=== PATIENT | female | born 1995 | race Caucasian/White ===

== ENCOUNTER 2019-06-05 07:11 | Emergency (ER) | payer OTHER ==
[2019-06-05 07:20] VITALS: BP 138/71
--- NOTE | 2019-06-05 07:52 | ED Physician Documentation ---
PD HPI URI - Stated complaint Stated Complaint: COUGH/FEVER - Chief complaint Chief Complaint: Resp - History obtained from History obtained from: Patient - History of Present Illness Timing - onset: Yesterday Timing duration: Days (05/22) Timing details: Abrupt onset, Still present Associated symptoms: Fever, Nasal congestion, Dry cough, NVD (nausea without diarrhea nor vomiting). No: Chest pain, Dyspnea, Bilateral edema Contributing factors: No: Sick contact, Travel, Immunocompromised Similar symptoms before: Has not had sx before Recently seen: Not recently seen Review of Systems Constitutional: reports: Fever, Chills, Myalgias Nose: reports: Congestion Throat: denies: Sore throat Respiratory: reports: Cough GI: reports: Nausea. denies: Vomiting, Diarrhea : reports: Now EGA (20 weeks). denies: Dysuria, Frequency PD PAST MEDICAL HISTORY - Past Medical History Past Medical History: No - Past Surgical History Past Surgical History: Yes General: Cholecystectomy - Present Medications Home Medications: Ambulatory Orders Medication Instructions Recorded Confirmed Albuterol Sulfate [Albuterol 2 puffs IH QID #1 hfa.aer.ad 06/05/19 Sulfate Hfa] Benzonatate [Tessalon Perle] 100 mg PO TID PRN #25 capsule 06/05/19 Ondansetron Odt [Zofran] 4 mg TL Q6H PRN #10 tablet 06/05/19 Oseltamivir [Tamiflu] 75 mg PO BID #10 capsule 06/05/19 dexAMETHasone [Decadron] 4 mg PO DAILY #5 tablet 06/05/19 - Allergies Allergies/Adverse Reactions: Allergies Allergy/AdvReac Type Severity Reaction Status Date / Time No Known Drug Allergies Allergy Verified 06/05/19 07:20 - Social History Does the pt smoke?: No Smoking Status: Never smoker Does the pt drink ETOH?: No Does the pt have substance abuse?: No PD ED PE NORMAL - Vitals Vital signs reviewed: Yes - General General: Alert and oriented X 3, No acute distress, Well developed/nourished - HEENT HEENT: Ears normal, Moist mucous membranes, Pharynx benign - Neck Neck: Supple, no meningeal sign, Other (mild anterior adenopathy) - Cardiac Cardiac: RRR, No murmur - Respiratory Respiratory: Clear bilaterally - Abdomen Abdomen: Normal bowel sounds, Soft, Non distended, No organomegaly, Other (gravid with fundus at umbilicus) - Derm Derm: Normal color, Warm and dry - Neuro Neuro: Alert and oriented X 3, No motor deficit, Normal speech Results - Vitals Vitals: Oxygen O2 Source Room air - Labs Labs: Laboratory Tests 06/05/19 08:17 Influenza A (Rapid) Negative Influenza B (Rapid) POSITIVE H PD MEDICAL DECISION MAKING - ED course Complexity details: considered differential, d/w patient Departure - Departure Disposition: 01 Home, Self Care Clinical Impression: Influenza B Condition: Stable Record reviewed to determine appropriate education?: Yes Instructions: ED Flu Follow-Up: KAMRON BELL [Primary Care Provider] - Prescriptions: Albuterol Sulfate [Albuterol Sulfate Hfa] 2 puffs IH QID #1 hfa.aer.ad Benzonatate [Tessalon Perle] 100 mg PO TID PRN #25 capsule PRN Reason: Cough dexAMETHasone [Decadron] 4 mg PO DAILY #5 tablet Ondansetron Odt [Zofran] 4 mg TL Q6H PRN #10 tablet PRN Reason: Nausea / Vomiting Oseltamivir [Tamiflu] 75 mg PO BID #10 capsule Comments: Your test is positive for influenza B. You likely be sick for about 7 or 8 days so the first 4 or 5 are typically the most. We can add oseltamivir or antiviral and see if it will decrease his symptoms and it will decrease the viral load so not quite as much illness. Otherwise symptom medications with albuterol inhaler 2 puffs 4 times a day as well as Decadron steroid daily to decrease the inflammation of the bronchials and less coughing. Stay well-hydrated. Use Tylenol if needed for fevers and pains. Tessalon if needed for cough. Ondansetron if needed for nausea or vomiting. Forms: Activity restrictions Discharge Date/Time: 06/05/19 09:08
[2019-06-05] MEDS ORDERED: DEXAMETHASONE 10 MG/ML VIAL PO STA (08:30)
[2019-06-05] MEDS ORDERED: CHERRY SYRUP 10 ML UDC PO ONE (08:30)
[2019-06-05] MEDS ORDERED: BENZONATATE 100 MG CAPSULE PO STA (08:30)
[2019-06-05] MEDS ORDERED: ACETAMINOPHEN 325 MG TABLET PO STA (08:30)
[2019-06-05] MEDS ORDERED: OSELTAMIVIR 75 MG CAPSULE PO STA (08:41)
== END 2019-06-05 09:08 | disposition home or self-care (01) ==
LOC: ED 07:11
DX: J10.1 Influenza due to other identified influenza virus with other respiratory manifestations (principal)
CPT/HCPCS: 87275; 87276; 99284; A9270

== ENCOUNTER 2019-09-22 08:00 | Outpatient (CLI) | payer OTHER ==
[2019-09-22 21:59] LABS: TRICHOMONAS VAGINALIS DNA NEGATIVE (NEGATIVE)
== END 2019-09-22 23:59 | disposition home or self-care (01) ==
LOC: LAB.R 08:00
PROVIDERS: ATTEND Advanced Practice Midwife
DX: Z34.90 Encounter for supervision of normal pregnancy, unspecified, unspecified trimester (principal)
CPT/HCPCS: 87491; 87591; 87661; 87797

== ENCOUNTER 2021-10-08 19:19 | Emergency (ER) | payer OTHER ==
[2021-10-08 19:26] VITALS: BP 133/73
--- OUTSIDE RECORDS SUMMARY | 2021-10-08 20:14 | EXTERNAL MEDICAL SUMMARY RPT | Continuity of Care Document ---
:1995 Author Organization [facility] Address [address] [place] [address] Phone Care Team Providers Name Role Phone Miscellaneous, Doctor Unavailable Unavailable Noti, Mabel Unavailable Unavailable Allergies No information. Encounters No information. Medications No information. Problems date description facility [id number] Encounter for supervision of other [place] , [facility] second [id number] 16 weeks gestation of [facility] [id number] Encounter for supervision of other norm [facility] first t Procedures date description facility [id number] [facility] [id number] [facility] [id number] [facility] [id number] [facility] [id number] [facility] [id number] [facility] [id number] [facility] Results No information. Vital Signs date measurement value source [id number] weight_standard 235.06 lb [id number] weight_metric 106.62 kg [id number] height_standard 68 in [id number] height_metric 172.72 cm [id number] BP_systolic 120 mm[Hg] [id number] BP_diastolic 80 mm[Hg] [id number] BMI 35.7 kg/m2 [id number] weight_standard 107.05 lb [id number] weight_metric 48.56 kg [id number] height_standard 68 in [id number] height_metric 172.72 cm [id number] BP_systolic 122 mm[Hg] [id number] BP_diastolic 66 mm[Hg] [id number] BMI 35.9 kg/m2
--- NOTE | 2021-10-08 20:38 | ED Physician Documentation ---
PD HPI UPPER EXT INJURY - Stated complaint Stated Complaint: R RING FINGER LAC - Chief complaint Chief Complaint: Laceration - History obtained from History obtained from: Patient - History of Present Illness Location: Right, Finger (ring) Where injury occurred: Home Pain level max: 3 Pain level now: 2 Improved by: Rest Worsened by: Moving, Palpating Contributing factors: No: Anticoagulated Recently seen: Not recently seen - Additonal information Additional information: 26-year-old female presents to the emergency department with a right ring finger laceration. She was using a mandolin at home when she excellently sliced her finger. Worse with palpation and movement. Not anticoagulated. Patient is right-handed. Tetanus up-to-date. Review of Systems GI: denies: Nausea, Vomiting : denies: Now EGA PD PAST MEDICAL HISTORY - Past Medical History Past Medical History: No Cardiovascular: None Respiratory: None Neuro: None Endocrine/Autoimmune: None GI: None : None Musculoskeletal: None Derm: None - Past Surgical History Past Surgical History: Yes General: Cholecystectomy HEENT: Other - Present Medications Home Medications: Ambulatory Orders Medication Instructions Recorded Confirmed Pnv No.95/Ferrous Fum/Folic AC 1 cap PO DAILY 10/08/21 10/08/21 [ Caplet] - Allergies Allergies/Adverse Reactions: Allergies Allergy/AdvReac Type Severity Reaction Status Date / Time No Known Drug Allergies Allergy Verified 06/05/19 07:20 - Social History Does the pt smoke?: No Smoking Status: Never smoker Does the pt drink ETOH?: No Does the pt have substance abuse?: No - Immunizations Immunizations are current?: Yes - POLST Patient has POLST: No PD ED PE NORMAL - Vitals Vital signs reviewed: Yes - General General: Alert and oriented X 3, No acute distress - HEENT HEENT: Moist mucous membranes - Derm Derm: Warm and dry - Extremities Extremities: Other (R ring finger - tip amputation. no bony exposure. Neurovascular intact. ) - Neuro Neuro: Alert and oriented X 3 Results - Vitals Vitals: Vital Signs - 24 hr 10/08/21 19:24 Temperature 37.0 C Heart Rate 74 Respiratory 19 Rate Blood Pressure 133/73 H O2 Saturation 99 Oxygen O2 Source Room air PD MEDICAL DECISION MAKING - ED course Complexity details: considered differential, d/w patient ED course: Patient with a small fingertip amputation, no bony exposure. A finger tourniquet was applied and Dermabond was applied. When the glue dried the tourniquet was removed. No further bleeding. A foam finger splint was then applied over the area. Patient tolerated well. Patient counseled regarding signs and symptoms for which I believe and urgent re-evaluation would be necessary. Patient with good understanding of and agreement to plan and is comfortable going home at this time This document was made in part using voice recognition software. While efforts are made to proofread this document, sound alike and grammatical errors may oc cur. Departure - Departure Disposition: 01 Home, Self Care Clinical Impression: Traumatic amputation of fingertip Qualifiers: Encounter type: initial encounter Qualified Code(s): S68.119A - Complete traumatic metacarpophalangeal amputation of unspecified finger, initial encounter Condition: Good Instructions: ED Laceration Amputation Finger Tip Open Tx Follow-Up: Your,doctor As needed [Other] Comments: Keep the area clean. Do not apply any ointment as this may dissolve the glue. Wear the splint for the next 3 to 4 days to prevent any more damage to the area. Return if you notice redness, swelling or drainage from the wound. The glue should dissolve on its own within a few days. Return if you worsen Discharge Date/Time: 10/08/21 20:35
== END 2021-10-08 20:35 | disposition home or self-care (01) ==
LOC: ED 19:19
DX: S68.110A Complete traumatic metacarpophalangeal amputation of right index finger, initial encounter (principal); W27.4XXA Contact with kitchen utensil, initial encounter; Y93.G1 Activity, food preparation and clean up; Y92.009 Unspecified place in unspecified non-institutional (private) residence as the place of occurrence of the external cause
CPT/HCPCS: 99282; 99283

== ENCOUNTER 2021-12-16 07:53 | Outpatient (CLI) | payer OTHER ==
[2021-12-16 09:09] LABS: HGB - HEMOGLOBIN 11.5 g/dL (12.0-16.0); MEAN CORPUSCULAR HEMOGLOBIN 30.3 pg (27.0-31.0); MEAN CORPUSCULAR HGB CONC 32.9 g/dL (32.0-36.0); MEAN CORPUSCULAR VOLUME 92.3 fL (81.0-99.0); RED BLOOD COUNT 3.79 10^6/uL (4.20-5.40); RED CELL DISTRIBUTION WIDTH 13.2 % (12.0-15.0); WHITE BLOOD COUNT 7.1 x10^3/uL (4.8-10.8)
== END 2021-12-16 07:54 | disposition home or self-care (01) ==
LOC: LAB 07:53
PROVIDERS: ATTEND Obstetrics & Gynecology
DX: Z34.80 Encounter for supervision of other normal pregnancy, unspecified trimester (principal)
CPT/HCPCS: 36415; 82950; 85027

== ENCOUNTER 2022-01-12 16:52 | Outpatient (CLI) | payer OTHER ==
--- NOTE | 2022-01-13 11:02 | Ultrasound Report ---
PROCEDURE: OB F/U or Repeat INDICATIONS: UTERINE SIZE DATE DISCREPANCY OUTSIDE/PRIOR DATING DATA: Last menstrual period (LMP): 05/31/2021. LMP-based estimated date of delivery (JANELLE): 03/07/2022. First dating scan (date and location): 09/20/2021. Estimated date of delivery (JANELLE) from first dating scan: 03/09/2022. The below data below was generated using the ultrasound JANELLE of 03/09/2022 TECHNIQUE: Real-time scanning was performed of the fetus, with image documentation and biometric measurements. COMPARISON: OB ultrasound 10/18/2021 [facility] FINDINGS: General: A single living intrauterine gestation is present. Presentation: Breech Placenta: Placental position is anterior, without previa. Amniotic fluid index: 16.3 cm, within normal limits for gestational age. Largest pocket 5.8 cm heart rate: 148 beats per minute. Maternal cervical canal: 4.3 cm long; normal length is 2.5 cm or more. biometrics: Biparietal diameter: 8.0 cm 32 weeks 0 days Head circumference: 30.1 cm 34 weeks 0 days Abdominal circumference: 20.4 cm 32 weeks 3 days Femur length: 6.4 cm 33 weeks 1 day Estimated gestational age from initial scan: 32 weeks 0 days Composite gestational age from present scan: 32 weeks 5 days Estimated weight and percentile: 2049 g, 65th percentile Measurement variability in biometric dating: +/- 10 days from 12-20 weeks gestation, +/- 2 weeks from 20-30 weeks gestation, +/- 3 weeks at 30 weeks gestation or more. Other: Nuchal cord is noted. IMPRESSION: Single live intrauterine with ultrasound gestational age of 30 weeks 5 days. CHRYSTAL is within normal limits. Nuchal cord is noted. Interval follow-up is recommended. Reviewed by: Phyllis Paige MD on 01/13/2022 11:00 AM PDT Approved by: Phyllis Paige MD on 01/13/2022 11:00 AM PDT Station ID: [id number]
== END 2022-01-12 16:53 | disposition home or self-care (01) ==
LOC: DI 16:52
PROVIDERS: ATTEND Obstetrics & Gynecology
DX: O26.843 Uterine size-date discrepancy, third trimester (principal); Z3A.30 30 weeks gestation of pregnancy

== ENCOUNTER 2022-02-13 16:00 | Outpatient (CLI) | payer OTHER | END 2022-02-13 23:59 | disposition home or self-care (01) | LOC: LAB.WC 16:00 | PROVIDERS: ATTEND Obstetrics & Gynecology | DX: Z36.85 Encounter for antenatal screening for Streptococcus B (principal) | CPT/HCPCS: 87797 ==

== ENCOUNTER 2022-02-20 16:39 | Outpatient (CLI) | payer OTHER ==
--- NOTE | 2022-02-21 16:35 | Ultrasound Report ---
PROCEDURE: OB F/U or Repeat INDICATIONS: UTERINE SIZE DATE DISCREPENCY OUTSIDE/PRIOR DATING DATA: Last menstrual period (LMP): 05/31/2021. LMP-based estimated date of delivery (JANELLE): 03/07/2022. First dating scan (date and location): 10/18/2021, [facility]. Estimated date of delivery (JANELLE) from first dating scan: 03/09/2022. TECHNIQUE: Real-time scanning was performed of the fetus, with image documentation and biometric measurements. FINDINGS: General: A single living intrauterine gestation is present. Presentation: Breech Placenta: Placental position is anterior, without previa. Amniotic fluid index: 16.3 cm, 62.5% for gestational age. heart rate: 148 beats per minute. Maternal cervical canal: 4.3 cm long; normal length is 2.5 cm or more. biometrics: Biparietal diameter: 8.8 cm, 35 weeks, 4 days Head circumference: 33.4 cm, 38 weeks, 2 days Abdominal circumference: 33.6 cm, 37 weeks, 3 days Femur length: 7.1 cm, 36 weeks, 3 days Estimated gestational age from initial scan: 37 weeks, 4 days Composite gestational age from present scan: 37 weeks, 0 days Estimated weight and percentile: 3167 g, 45.9% Measurement variability in biometric dating: +/- 10 days from 12-20 weeks gestation, +/- 2 weeks from 20-30 weeks gestation, +/- 3 weeks at 30 weeks gestation or more. Other: Nuchal cord is redemonstrated. IMPRESSION: 1. Single live intrauterine gestation with a composite gestational age of 37 weeks, 0 days which is c oncordant with dates by initial scan. 2. Nuchal cord again noted as well as breech position. Reviewed by: Celine Caputo MD on 02/21/2022 4:34 PM PDT Approved by: Celine Caputo MD on 02/21/2022 4:34 PM PDT Station ID: [id number]
== END 2022-02-20 16:40 | disposition home or self-care (01) ==
LOC: DI 16:39
PROVIDERS: ATTEND Nurse Practitioner
DX: O26.843 Uterine size-date discrepancy, third trimester (principal); Z3A.37 37 weeks gestation of pregnancy

== ENCOUNTER 2022-03-06 07:29 | Inpatient (IN) | payer OTHER ==
--- NOTE | 2022-03-06 09:15 | HISTORY & PHYSICAL EXAMINATION ---
Admit History - Visit Reason Visit Reason: Other (for elective induction) - : 2 Parity: 1 Premature: 0 Ectopic: 0 : 0 Care: positive: [facility] Risk/History: positive: Other (Shoulder dystocia) Complications This : positive: None Smoking Status: Never smoker - Mother's Labs Mother's Blood Type: positive: O Mother's RH: positive: Positive GBS: positive: Group B Step Negative Rubella Status: positive: Non-immune - Other Maternal History Other Maternal History: History of abnormal Pap smear low-grade squamous intraepithelial lesion History of cholecystectomy and extraction of wisdom tooth Meds/Allgy - Home Medications Home Medications: Ambulatory Orders Medication Instructions Recorded Confirmed Pnv No.95/Ferrous Fum/Folic AC 1 cap PO DAILY 10/08/21 10/08/21 [ Caplet] - Allergies Allergies/Adverse Reactions: Allergies Allergy/AdvReac Type Severity Reaction Status Date / Time No Known Drug Allergies Allergy Verified 06/05/19 07:20 Review of Systems - All Other Systems All Other Systems: reports: Reviewed and negative Physical - Abdominal Exam Vital Signs: Temp Pulse Resp BP Pulse Ox O2 Flow Rate 97.9 F 90 16 136/73 H 03/06/22 08:00 03/06/22 08:00 03/06/22 08:00 03/06/22 08:00 Contraction Intensity: positive: Irritability Uterine Resting Tone: positive: Soft - Monitoring Strip Review: positive: Category I - Presentation Presentation: positive: Vertex - Vaginal Exam Membranes: positive: Membranes intact Dilation (in cm): 2 Station: positive: -1 Cervical Position: positive: Posterior - Speculum Exam Speculum Exam Performed: positive: Yes - Other Notes Labor Progress Note/Additional Text: Elective induction with the help of balloon insertion Plan for Labor - Plan For Labor Plan for Labor: Balloon insertion followed by Pitocin and rupture of membrane Physical Exam - Physical Exam General: positive: No acute distress HEENT: positive: Atraumatic Neck: positive: Supple w/out meningeal sx Cardiac: positive: Regular Rate Resipratory: positive: Clear to ausultation jenni Abdomen: positive: Normal Bowel sounds, Distended Female : positive: Normal external Back: positive: Normal ROM Extremities: positive: Normal ROM Skin: positive: Warm and dry Neurologic: positive: Alert and Oriented X 3
[2022-03-06] MEDS ORDERED: TERBUTALINE 1 MG/ML VIAL SUBQ PRN (09:33)
[2022-03-06] MEDS ORDERED: hydrALAZINE INJ 20 MG/ML VIAL IVP PRN ×2 (09:33)
[2022-03-06] MEDS ORDERED: ONDANSETRON 4 MG/2 ML VIAL IVP PRN (09:33)
[2022-03-06] MEDS ORDERED: SODIUM CHLORIDE FLUSH 0.9% 10 ML SYRINGE IVP PRN (09:33)
[2022-03-06] MEDS ORDERED: lidocaine 1% 20 ML MDV ID PRN (09:33)
[2022-03-06] MEDS ORDERED: NIFEdipine 10 MG CAPSULE PO PRN (09:33)
[2022-03-06] MEDS ORDERED: CARBOPROST TROMETHAMINE 250 MCG/ML AMP IM PRN (09:33)
[2022-03-06] MEDS ORDERED: fentaNYL 100 MCG/2 ML VIAL IVP PRN (09:33)
[2022-03-06] MEDS ORDERED: OXYTOCIN 10 UNIT/ML VIAL IM PRN (09:33)
[2022-03-06] MEDS ORDERED: OXYTOCIN/SODIUM CHLORIDE 500 ML IV PRN (09:33)
[2022-03-06] MEDS ORDERED: miSOPROStoL 200 MCG TABLET PR PRN (09:33)
[2022-03-06] MEDS ORDERED: miSOPROStoL 200 MCG TABLET BC PRN (09:33)
[2022-03-06] MEDS ORDERED: LABETALOL 20 MG/4 ML SYRINGE IVP PRN ×3 (09:33)
[2022-03-06] MEDS ORDERED: METHYLERGONOVINE 0.2 MG/ML VIAL IM PRN (09:33)
[2022-03-06] MEDS ORDERED: TRANEXAMIC ACID IN NACL 1,000 MG/100 ML BAG IV PRN (09:33)
--- NOTE | 2022-03-06 09:46 | PROVIDER PROGRESS NOTE ---
Progress Note Induction of labor risk, benefits and alternative reviewed. Discussed cervical ripening options and need for this if Rubi score is less than 8. Discussed if Rubi score above 8 then can proceed with induction of labor. Inductions is always performed with Pitocin through the IV and artificial rupture of membranes. Discussed risk and benefit of both. Risk of failed induction and possible need for was reviewed. Procedure: The procedure has been discussed with the patient, including benefits and risk. She also understands the possibility of awaiting spontaneous labor. She consents to a labor induction preceded by balloon cervical ripening. Patient in lithotomy. Consent obtained. Speculum placed, cervix identified. [employer] balloon placed into cervix without difficulty. Uterine balloon filled with a 60 cc sterile water.. Vaginal balloon also filled with 60 cc sterile water, tolerated well. T Cat 1.
[2022-03-06 09:47] LABS: BASOPHILS % (AUTO) 0.3 %; EOSINOPHILS # (AUTO) 0.1 10^3/uL (0.0-0.7); EOSINOPHILS % (AUTO) 1.1 %; HCT - HEMATOCRIT 36.6 % (37.0-47.0); HGB - HEMOGLOBIN 11.5 g/dL (12.0-16.0); LYMPHOCYTES # (AUTO) 2.3 10^3/uL (1.5-3.5); LYMPHOCYTES % (AUTO) 33.1 %; MEAN CORPUSCULAR HEMOGLOBIN 27.8 pg (27.0-31.0); MEAN CORPUSCULAR HGB CONC 31.4 g/dL (32.0-36.0); MEAN CORPUSCULAR VOLUME 88.4 fL (81.0-99.0); MEAN PLATELET VOLUME 10.7 fL (7.9-10.8); MONOCYTES # (AUTO) 0.4 10^3/uL (0.0-1.0); MONOCYTES % (AUTO) 5.7 %; NEUTROPHILS # (AUTO) 4.2 10^3/uL (1.5-6.6); NEUTROPHILS % (AUTO) 59.5 %; PLT - PLATELET COUNT 197 10^3/uL (130-450); RED BLOOD COUNT 4.14 10^6/uL (4.20-5.40); RED CELL DISTRIBUTION WIDTH 13.7 % (12.0-15.0)
[2022-03-06] MEDS ORDERED: LACTATED RINGERS 1,000 ML IV SCH ×2 (10:00→19:00)
--- NOTE | 2022-03-06 10:30 | PROVIDER PROGRESS NOTE ---
Subjective - Prog Note Date Prog Note Date: 03/06/22 Prog Note Time: 10:28 - Subjective Subjective: The balloon came out spontaneously, and the cervix is 3+ centimeter. Artificial rupture membranes revealed clear fluid and Pitocin will be initiated per protocol. Objective - Vital Signs/Intake & Output Vital Signs: Vital Signs x48h Temp Pulse Resp BP 03/06/22 08:00 97.9 F 90 16 136/73 H - Lab Results Fish Bones: 03/06/22 08:30 Other Labs: Lab Results x24hrs 03/06/22 Range/Units 08:30 WBC 7.0 (4.8-10.8) x10^3/uL RBC 4.14 L (4.20-5.40) 10^6/uL Hgb 11.5 L (12.0-16.0) g/dL Hct 36.6 L (37.0-47.0) % MCV 88.4 (81.0-99.0) fL MCH 27.8 (27.0-31.0) pg MCHC 31.4 L (32.0-36.0) g/dL RDW 13.7 (12.0-15.0) % Plt Count 197 (130-450) 10^3/uL MPV 10.7 (7.9-10.8) fL Neut # (Auto) 4.2 (1.5-6.6) 10^3/uL Lymph # (Auto) 2.3 (1.5-3.5) 10^3/uL [place] # (Auto) 0.4 (0.0-1.0) 10^3/uL Eos # (Auto) 0.1 (0.0-0.7) 10^3/uL Baso # (Auto) 0.0 (0.0-0.1) 10^3/uL Absolute Nucleated RBC 0.00 x10^3/uL Nucleated RBC % 0.0 /100WBC
[2022-03-06] MEDS: OXYTOCIN/SODIUM CHLORIDE 500 ML IV SCH ×2 (10:41→19:04)
[2022-03-06] MEDS: SODIUM CHLORIDE FLUSH 0.9% 10 ML SYRINGE IVP SCH ×2 (10:41→20:30)
--- NOTE | 2022-03-06 16:57 | PROVIDER PROGRESS NOTE ---
Progress Note heart tone: Category 1 Contractions: Regular and strong Discussed about pain medication Cervix: 6+/90%/0 Plan: Continue current plan
--- NOTE | 2022-03-06 18:23 | DELIVERY NOTE ---
Delivery Note - Labor Labor: positive: Augmented by ARM, Induced by oxytocin - Delivery Method Infant Delivery Method: positive: Spontaneous vaginal delivery - Cervical Ripening Method Cervical Ripening Method: positive: Balloon device, Oxytocin - Presentation Presentation: positive: Vertex, PRISCILA - left occiput anterior - Nuchal Cord Nuchal Cord: positive: Present (easily slipped over the shoulder) - Anesthetic Anesthetic Type: - Episiotomy Type Episiotomy Type: positive: None - Laceration Laceration: positive: None - Delivery Outcome Delivery Outcome: positive: Livebirth - : positive: Placed in direct skin contact with mother, Bulb syringe, [place] used sex: positive: Male - Cord Cord: positive: 3 vessels - Placenta Placenta: positive: Intact, Spontaneous - Estimated Blood Loss Estimated Blood Loss (in cc): 150 - Post Delivery Events Post Delivery Events: positive: No post delivery events - Delivery Comments (Free Text/Narrative) Delivery Comments (Free Text/Narrative): Patient was placed in the dorsal lithotomy position. Upon maternal pushing the head was delivered atraumatically followed by the anterior shoulder, posterior shoulder, then the remainder of the 's body. A nuchal cord was easily slipped over the shoulder. A male was delivered with APGARS of [ 8 ] at 1 minute and [ 9 ] at 5 minutes. The infant was placed on its mother's chest . After the cord finished pulsating, the umbilical cord was clamped times two and cut. The placenta delivered intact with three vessel cord. Placenta [was not] sent to pathology. Thirty units of Pitocin were added to the IV fluid and allowed to run freely. Uterine massage was performed until uterus was deemed firm. [Upon inspection of the perineum, vagina and cervix were intact. Upon re- inspection the patient was hemostatic.] Uterus again massaged and found to be firm. Needle and sponge counts were correct. Cytotec 800 mcg were inserted rectaly kaley to immidiate hemorrahge and she responded well. Patient was stable and allowed to recover in L&D room. [Infant was stable and remained in room with mother.] weight is pending at this time. EBL: 300 ml.
[2022-03-06] MEDS: IBUPROFEN 600 MG TABLET PO SCH (20:13)
[2022-03-06] MEDS: DOCUSATE SODIUM 100 MG CAPSULE PO SCH (23:58)
[2022-03-07] MEDS: IBUPROFEN 600 MG TABLET PO SCH ×3 (02:25→13:27)
[2022-03-07] MEDS ORDERED: PRENATAL VITAMIN TABLET PO SCH (08:00)
[2022-03-07] MEDS: DOCUSATE SODIUM 100 MG CAPSULE PO SCH (08:24)
[2022-03-07] MEDS: ACETAMINOPHEN 500 MG TABLET PO SCH ×2 (08:34→13:28)
--- NOTE | 2022-03-07 11:00 | PROVIDER PROGRESS NOTE ---
Subjective - Prog Note Date Prog Note Date: 03/07/22 Prog Note Time: 10:58 - Subjective Pt reports feeling: Improved (Doing well.) Objective - Vital Signs/Intake & Output Vital Signs: Vital Signs x48h Temp Pulse Resp BP Pulse Ox 03/07/22 08:10 97.7 F 60 18 122/70 100 03/07/22 06:25 98.1 F 69 18 125/74 100 Intake & Output: Intake & Output 03/04/22 03/05/22 03/06/22 03/07/22 23:59 23:59 23:59 23:59 Intake Total 3075 1200 Balance 3075 1200 - Objective General Appearance: positive: No acute distress Abdomen: positive: Non-tender Neurologic/Psychiatric: positive: Oriented x3 - Lab Results Fish Bones: 03/06/22 08:30 Other Labs: Lab Results x24hrs 03/06/22 03/06/22 Range/Units 10:06 08:30 Blood Type O POSITIVE Blood Type Recheck O POSITIVE Antibody Screen NEGATIVE Assessment/Plan - Problem List (3) (spontaneous vaginal delivery) Impression: P: RTC 1 week for PP check up
--- NOTE | 2022-03-07 11:05 | Discharge Plan ---
Discharge Plan Problem Reviewed?: Yes Disposition: Home, Self Care Diet: Regular Activity Restrictions: Activity as Tolerated Shower Restrictions: No Driving Restrictions: Yes (PP 6 weeks) Weight Bearing: Partial Weight (not heavier than the baby) No Smoking: If you smoke, Please STOP! Call for help. Follow-up with: Akash Guzman MD [Provider Admit Priv/Credential] -
[2022-03-07 11:07] LABS: BASOPHILS % (AUTO) 0.4 %; EOSINOPHILS # (AUTO) 0.1 10^3/uL (0.0-0.7); EOSINOPHILS % (AUTO) 0.8 %; HCT - HEMATOCRIT 38.4 % (37.0-47.0); HGB - HEMOGLOBIN 12.2 g/dL (12.0-16.0); LYMPHOCYTES # (AUTO) 2.6 10^3/uL (1.5-3.5); LYMPHOCYTES % (AUTO) 27.3 %; MEAN CORPUSCULAR HEMOGLOBIN 27.9 pg (27.0-31.0); MEAN CORPUSCULAR HGB CONC 31.8 g/dL (32.0-36.0); MEAN CORPUSCULAR VOLUME 87.7 fL (81.0-99.0); MEAN PLATELET VOLUME 9.9 fL (7.9-10.8); MONOCYTES # (AUTO) 0.7 10^3/uL (0.0-1.0); MONOCYTES % (AUTO) 7.5 %; NEUTROPHILS # (AUTO) 6.1 10^3/uL (1.5-6.6); NEUTROPHILS % (AUTO) 63.7 %; PLT - PLATELET COUNT 196 10^3/uL (130-450); RED BLOOD COUNT 4.38 10^6/uL (4.20-5.40); RED CELL DISTRIBUTION WIDTH 13.8 % (12.0-15.0); WHITE BLOOD COUNT 9.6 x10^3/uL (4.8-10.8)
--- NOTE | 2022-03-07 11:09 | DISCHARGE SUMMARY ---
Discharge Summary Admit Date: 03/06/22 Discharge Date: 03/07/22 Discharging Provider: Primary Care Provider: Code Status: Attempt Resuscitation Condition at Discharge: Stable Discharge Disposition: 01 Home, Self Care - DIAGNOSES Admission Diagnoses: Intrauterine at term History of shoulder dystocia Elective induction Discharge Diagnoses with Status of Each Condition: Normal day 1 - HPI History of Present Illness: This 27-year-old white female 2 para 1 was admitted for elective induction. She had a vaginal delivery with shoulder dystocia problem last time and elective induction was scheduled this time. She did not have routine pr enatal care and course. She responded to Pitocin induction well and she delivered a baby boy over the intact perineum. She stayed stable . - HOSPITAL COURSE Hospital Course: She remained stable and wanted to be discharged day 1. Baby is was stable and baby is going to be checked 24-hour. Checkup. - ALLERGIES Allergies/Adverse Reactions: Allergies Allergy/AdvReac Type Severity Reaction Status Date / Time No Known Drug Allergies Allergy Verified 06/05/19 07:20 - MEDICATIONS Home Medications: Ambulatory Orders Medication Instructions Recorded Confirmed Pnv No.95/Ferrous Fum/Folic AC 1 cap PO DAILY 10/08/21 10/08/21 [ Caplet] - PHYSICAL EXAM AT DISCHARGE General Appearance: positive: No acute distress ENT: positive: ENT inspection nml Neck: positive: Nml inspection Respiratory: positive: No respiratory distress, Breath sounds nml Cardiovascular: positive: Regular rate & rhythm Abdomen: positive: Non-tender Back: positive: Nml inspection Skin: positive: Color nml Extremities: positive: Non-tender Neurologic/Psychiatric: positive: Oriented x3 - LABS Result Diagrams: 03/06/22 08:30 - FOLLOW UP Follow Up: [address] Guzman - TIME SPENT Time Spent in Discharge (Minutes): 10
[2022-03-07] MEDS ORDERED: MEASLES,MUMPS & RUBELLA VACC 0.5 ML VIAL SUBQ ONE (13:00)
[2022-03-07] MEDS ORDERED: VARICELLA VACCINE LIVE/PF 1,350 UNIT/0.5 ML VIAL SUBQ ONE (13:00)
[2022-03-07 15:52] VITALS: BP 109/57
--- NOTE | 2022-03-07 19:37 | Labor Flowsheet ---
Labor Flowsheet Datetime Report Generated by CPN: 03/07/2022 19:36 Datetime: 03/07/2022 15:36 VITAL SIGNS NBP Sys/Leah/Mean (mmHg): 109 : 57 : 68 Pulse: 64 Datetime: 03/06/2022 20:11 Stage of : Recovery Datetime: 03/06/2022 20:10 PAIN Pain Scale: 0 Pain Presence: None/Denies Datetime: 03/06/2022 19:18 Patient Care Comments: attempt Datetime: 03/06/2022 18:57 Respirations: 18 Datetime: 03/06/2022 18:46 Vital Sign Comments: Provider notified of elevated BP, no new orders. Pt denies HUERTA, RUQ pain, visu al changes Datetime: 03/06/2022 18:38 Temperature (C): 37.1 Datetime: 03/06/2022 18:30 Membranes Ruptured Date/Time: 03/06/2022 10:29 Datetime: 03/06/2022 18:22 Communication Comments: continued skin to skin Datetime: 03/06/2022 18:18 COMMUNICATION Communication: Count completed Datetime: 03/06/2022 18:14 Medication Comments: Pit bolus started Datetime: 03/06/2022 18:05 VAGINAL EXAM Dilatation (cm): 10.0 Effacement (%): 100 Station: 2 Exam by: Dr. Remingtonung Datetime: 03/06/2022 18:00 UTERINE ACTIVITY Monitor Mode: External Frequency (min): 2-3 Quality: Moderate Duration (sec): 60-70 Pattern: Normal: <= 5 Contractions in 10 Minutes Resting Tone (Palpate): Relaxed ASSESSMENT A Monitor Mode: External US FHR Baseline Rate : 125 Variability: Moderate 6-25 bpm Accelerations: 15X15 Decelerations: None Category: Category I Datetime: 03/06/2022 17:55 Temperature Route: Axillary LaborFlag: Labor Datetime: 03/06/2022 17:48 Pain Assessment Comments: Pt c/o urge to push Datetime: 03/06/2022 17:22 MEDICATIONS Pitocin (milliunits): Decreased to @ 6 Datetime: 03/06/2022 17:01 Pain Type: Cramping Pain Location: Abdomen Datetime: 03/06/2022 17:00 Pitocin Checklist: At Least 1 Acceleration of 15 bpm x 15 Seconds in 30 Minutes or Adequate Variabi lity; No More than 1 Late Deceleration Occurred in Past 30 Minutes; No More than 2 Variable Decelerat ions > 60 Seconds in Duration and decreasing >60 bpm in 30 minutes; No More than 5 Uterine Contractio ns in 10 Minutes for any 20 Minute Interval Datetime: 03/06/2022 16:49 Vaginal Bleeding: Scant Datetime: 03/06/2022 16:33 Monitor Interventions for UA: [place] Adjusted Datetime: 03/06/2022 16:32 Monitor Interventions for FHR: Ultrasound Adjusted Datetime: 03/06/2022 16:30 Contraction Comments: per RN palpation Datetime: 03/06/2022 16:28 Pain Relief Measures: Comfort Measures Pain Coping: Breathing Through Contractions Datetime: 03/06/2022 16:17 FHR Baseline Changes: No Baseline Change Datetime: 03/06/2022 15:35 Patient Position/Activity: Standing Datetime: 03/06/2022 15:00 PATIENT CARE Oxygen Method: Room Air Datetime: 03/06/2022 14:43 SpO2 (%): 99 Datetime: 03/06/2022 14:02 I/O Interventions: Up to BR Datetime: 03/06/2022 13:56 Comfort Measures: Breathing/Relaxation Datetime: 03/06/2022 13:01 Comments: interrupted strip d/t maternal movement Datetime: 03/06/2022 13:00 Amniotic Fluid Color: Particulate Meconium Amniotic Fluid Amount: Small Membrane Comments: noticed on alan pad possible particulate meconium Datetime: 03/06/2022 10:29 Membrane Status: Ruptured Membranes Rupture Method: Artificial Amniotic Fluid Odor: Normal Vaginal Exam Comments: 3+cm
== END 2022-03-07 19:30 | disposition home or self-care (01) | DRG 807 ==
LOC: WFO 07:29 → FBP 07:30 → WFO 09:30 → FBP 09:33 → OBSVTOIN 10:47
PROVIDERS: ADMIT Obstetrics & Gynecology; ATTEND Obstetrics & Gynecology
PROC: 10E0XZZ Delivery of Products of Conception, External Approach (ICD-10-PCS; principal; 2022-03-06)
DX: O69.81X0 Labor and delivery complicated by cord around neck, without compression, not applicable or unspecified (principal); Z37.0 Single live birth; Z3A.00 Weeks of gestation of pregnancy not specified; Z87.59 Personal history of other complications of pregnancy, childbirth and the puerperium
CPT/HCPCS: 36415; 85025; 86850; 86900; 86901; A9270; G0378; J2210; J7120